=== PATIENT | male | born 1935 | race Caucasian/White ===

== ENCOUNTER → 2016-09-22 | Outpatient (CLI) | payer MEDICARE, OTHER ==
--- NOTE | 2016-09-22 12:00 | RADIOLOGY REPORT PS360 ---
CHEST(2 VIEWS-NOT PORTABLE) HISTORY: Tobacco abuse SMOKER ORDERING PHYSICIAN: Alivia Young MD PATIENT AGE: 81 years COMPARISON: None available FINDINGS: The cardiomediastinal silhouette and pulmonary vascularity are within normal limits. Coarsening of the bronchovascular markings worse in the lung bases consistent with interstitial changes of smoker's lung disease. There is evidence of old granulomatous disease.. No acute bony abnormalities. IMPRESSION: Coarsening of bronchovascular markings consistent with interstitial changes of smoker's lung disease otherwise negative
== END ==
LOC: RAD 10:38
DX: F17.200 Nicotine dependence, unspecified, uncomplicated (principal)

== ENCOUNTER → 2017-01-27 | Outpatient (CLI) | payer MEDICARE, OTHER ==
[~2017-01-27] MED LIST: ASPIRIN REGIMEN81 MG PO; CARTIA XT240 MG PO; CEFDINIR 300MG300 MG PO; CIALIS5 MG PO; GLIMEPIRIDE4 MG PO; JANUMET XR 10001 TE1 PO; LIPITOR40 M1 PO; MELOXICAM15 MG PO; METOPROLOL SUCC25 M1 PO; NORCO 325 MG-51 TAB PO; PLAVIX75 M1 PO; TOUJEO300 U/ML SC; XARELTO15 MG PO
--- NOTE | 2017-01-28 08:40 | RADIOLOGY REPORT PS360 ---
CHEST PORTABLE-PICC PLACEMENT HISTORY: PICC PLACEMENT Patient Age: 81 years: Male Ordering Physician: Osmar Hayes MD TECHNIQUE: AP portable upright chest COMPARISON :01/04/2017 CXR FINDINGS PICC line enters from the left arm transverse and left subclavian with tip at SVC. Good, satisfactory position. There is slightly less optimal inspiration today with mild bibasilar atelectasis. This yields slight hazy appearance towards left CP angle and left diaphragm but I tend to favor atelectasis at this point. Diaphragms down to the anterior fourth fifth rib. Heart is normal size. Tortuous aorta with minimal calcification. Barbi and mediastinal structures satisfactory. Chest wall unremarkable IMPRESSION: PICC line satisfactory position PICC line enters from the left with tip at SVC. Minor bibasilar atelectasis . No pneumonia. Nothing definitely acute otherwise
== END ==
LOC: COP 13:10
PROC: 05HC33Z Insertion of Infusion Device into Left Basilic Vein, Percutaneous Approach (ICD-10-PCS; principal; 2017-01-27)
DX: Z79.2 Long term (current) use of antibiotics (principal); Z45.2 Encounter for adjustment and management of vascular access device
CPT/HCPCS: C1751

== ENCOUNTER → 2017-03-09 | Outpatient (CLI) | payer MEDICARE, OTHER ==
[~2017-03-09] MED LIST changes: +JANUMET XR 10001 TE1; +SENNA LAXATIVE1 EACH; +ZINC-220220 MG
== END ==
LOC: EDSTATUS 10:42 → LAB 13:19
DX: M86.172 Other acute osteomyelitis, left ankle and foot (principal); Z89.422 Acquired absence of other left toe(s); Z51.81 Encounter for therapeutic drug level monitoring

== ENCOUNTER → 2017-03-18 | Outpatient (CLI) | payer MEDICARE, OTHER | LOC: LAB 10:48 | DX: M86.172 Other acute osteomyelitis, left ankle and foot (principal); Z89.422 Acquired absence of other left toe(s); Z51.81 Encounter for therapeutic drug level monitoring ==

== ENCOUNTER → 2017-03-21 | Outpatient (CLI) | payer MEDICARE, OTHER ==
[2017-03-21 23:50] LABS: BUN 24 mg/dL (7-18); GFR (ESTIMATED) 45 ML/MIN (>60)
== END ==
LOC: LAB 21:56
PROVIDERS: Family Medicine
DX: M86.172 Other acute osteomyelitis, left ankle and foot (principal); Z89.422 Acquired absence of other left toe(s); Z51.81 Encounter for therapeutic drug level monitoring

== ENCOUNTER → 2017-03-25 | Outpatient (CLI) | payer MEDICARE, OTHER | LOC: LAB 10:39 | DX: M86.072 Acute hematogenous osteomyelitis, left ankle and foot (principal); Z89.422 Acquired absence of other left toe(s); Z51.81 Encounter for therapeutic drug level monitoring ==

== ENCOUNTER → 2017-03-28 | Outpatient (CLI) | payer MEDICARE, OTHER ==
[2017-03-28 14:34] LABS: HEMOGLOBIN 12.3 g/dL (14.1-18.0); LYMPH # 2.1 K/mm3 (0.7-4.5); LYMPH % 13.4 % (10-50)
[2017-03-28 16:13] LABS: NEUTROPHILS 65 % (42-76)
[2017-03-28 17:06] LABS: BUN 21 mg/dL (7-18)
[2017-03-28 17:16] LABS: GFR (ESTIMATED) 45 ML/MIN (>60)
== END ==
LOC: LAB 14:18
PROVIDERS: Family Medicine
DX: M86.172 Other acute osteomyelitis, left ankle and foot (principal); Z89.422 Acquired absence of other left toe(s); Z51.81 Encounter for therapeutic drug level monitoring

== ENCOUNTER → 2017-04-01 | Outpatient (CLI) | payer MEDICARE, OTHER ==
[2017-04-01 12:35] LABS: BUN 14 mg/dL (7-18)
[2017-04-01 12:40] LABS: GFR (ESTIMATED) 58 ML/MIN (>60)
== END ==
LOC: LAB 11:52
PROVIDERS: Family Medicine
DX: M86.172 Other acute osteomyelitis, left ankle and foot (principal); Z89.422 Acquired absence of other left toe(s); Z51.81 Encounter for therapeutic drug level monitoring